=== PATIENT | female | born 1945 | race Caucasian/White ===

== ENCOUNTER 2016-11-07 13:02 | Day surgery (SDC) | payer OTHER ==
[2016-11-03 08:52] LABS: BASOPHILS % (AUTO) 0.4 % (0.0-2.0); EOSINOPHILS # (AUTO) 0.2 K/uL (0.0-0.4); EOSINOPHILS % (AUTO) 2.8 % (0.0-4.0); HEMATOCRIT 43.6 % (36-48); HEMOGLOBIN 14.5 g/dL (12.0-16.0); LYMPHOCYTES # (AUTO) 2.6 K/uL (1.0-5.5); LYMPHOCYTES % (AUTO) 39.1 % (20.5-51.5); MEAN CORPUSCULAR HEMOGLOBIN 31 pg (27-31); MEAN CORPUSCULAR HGB CONC 33 % (32-36); MEAN CORPUSCULAR VOLUME 94 fL (79.0-98.0); MONOCYTES # (AUTO) 0.5 K/uL (0.0-1.0); MONOCYTES % (AUTO) 6.8 % (1.7-9.3); NEUTROPHILS # (AUTO) 3.5 K/uL (1.8-7.7); NEUTROPHILS % (AUTO) 50.9 % (40.0-70.0); PLATELET COUNT (AUTO) 187 K/uL (130-430); RED BLOOD CELL COUNT(AUTO) 4.66 MIL/uL (4.2-6.2); RED CELL DISTRIBUTION WIDTH 13.3 % (9.0-15.0); WHITE BLOOD COUNT (AUTO) 6.8 K/uL (4.8-10.8)
[2016-11-03 08:57] LABS: PROTHROMBIN TIME 10.6 SECS (9.5-12.5)
[2016-11-03 08:59] LABS: ANION GAP 6 (5-15); CALCIUM 9.5 mg/dL (8.4-11.0); CHLORIDE 105 mmol/L (98-107); CREATININE 0.86 mg/dL (0.55-1.30); GLUCOSE 99 mg/dL (70-99); POTASSIUM 4.3 mmol/L (3.5-5.1); SODIUM SERUM 141 mmol/L (136-145); UREA NITROGEN, BLOOD 20 mg/dL (8-21)
[2016-11-03 09:01] LABS: BILIRUBIN,URINE NEGATIVE (NEGATIVE); BLOOD, URINE 1+ (NEGATIVE); CLARITY/URINE CLEAR (CLEAR); COLOR,URINE YELLOW (YELLOW); GLUCOSE,URINE NEGATIVE (NEGATIVE); KETONES,URINE NEGATIVE (NEGATIVE); LEUKOCYTE ESTERASE ,URINE TRACE (NEGATIVE); NITRITE, URINE NEGATIVE (NEGATIVE); PROTEIN URINE NEGATIVE (NEGATIVE); UROBILINOGEN,URINE 0.2 (0.2-1.0)
[2016-11-03 09:18] LABS: BACTERIA,URINE FEW /HPF (None Seen); MUCUS,URINE 1+ /LPF (None Seen)
[~2016-11-07] VITALS: Ht 160 cm; Wt 80.3 kg
[2016-11-07 13:17] VITALS: O2SAT 98
[2016-11-07] MEDS ORDERED: MIDAZOLAM HCL 5 MG/5 ML VIAL ONE (14:00)
[2016-11-07] MEDS ORDERED: SEVOFLURANE 15 MIN GAS INH ONE (14:00)
[2016-11-07] MEDS ORDERED: PROPOFOL 200MG/ 20ML VIAL (DIPRIVAN) IV ONE (14:00)
[2016-11-07] MEDS ORDERED: NS IRRIG SOLN 1000 ML IR ONE (14:00)
[2016-11-07] MEDS ORDERED: LR 1,000 ML IV SCH (14:50)
[2016-11-07] MEDS ORDERED: MORPHINE 2 MG/ML INJ. SYRINGE IVP PRN ×3 (15:00)
[2016-11-07] MEDS ORDERED: METOCLOPRAMIDE HCL 10 MG/2 ML VIAL IVP PRN (15:00)
[2016-11-07 15:52] VITALS: BP 142/58; PULSE 58; RESP 16
== END 2016-11-07 15:50 | disposition home or self-care (01) ==
LOC: SDS 13:02 → SMU 13:03 → SDS 15:50
PROVIDERS: ATTEND Orthopaedic Surgery
DX: M65.332 Trigger finger, left middle finger (principal); F17.200 Nicotine dependence, unspecified, uncomplicated
CPT/HCPCS: 26055; 36415; 71020; 80048; 81000; 85025; 85610; 85730; 93005; J2250; J2704; J7120

== ENCOUNTER 2019-06-09 05:20 | Inpatient (IN) | payer OTHER ==
[2019-06-04 13:36] LABS: BILIRUBIN,URINE NEGATIVE (NEGATIVE); CLARITY/URINE SL HAZY (CLEAR); COLOR,URINE YELLOW (YELLOW); GLUCOSE,URINE NEGATIVE (NEGATIVE); KETONES,URINE TRACE (NEGATIVE); LEUKOCYTE ESTERASE ,URINE 1+ (NEGATIVE); NITRITE, URINE NEGATIVE (NEGATIVE); PROTEIN URINE NEGATIVE (NEGATIVE); UROBILINOGEN,URINE 0.2 (0.2-1.0)
[2019-06-04 13:46] LABS: BLOOD, URINE TRACE (NEGATIVE)
[2019-06-04 13:50] LABS: CALCIUM 9.6 mg/dL (8.4-11.0); CHLORIDE 106 mmol/L (98-107); GLUCOSE 101 mg/dL (70-99); POTASSIUM 3.5 mmol/L (3.5-5.1); SODIUM SERUM 145 mmol/L (136-145); UREA NITROGEN, BLOOD 21 mg/dL (8-21)
[2019-06-04 13:52] LABS: BASOPHILS % (AUTO) 0.6 % (0.0-2.0); EOSINOPHILS # (AUTO) 0.1 K/uL (0.0-0.4); EOSINOPHILS % (AUTO) 1.9 % (0.0-4.0); HEMATOCRIT 44.5 % (36-48); HEMOGLOBIN 15.2 g/dL (12.0-16.0); LYMPHOCYTES # (AUTO) 2.7 K/uL (1.0-5.5); MEAN CORPUSCULAR HEMOGLOBIN 33 pg (27-31); MEAN CORPUSCULAR HGB CONC 34 % (32-36); MEAN CORPUSCULAR VOLUME 96 fL (79.0-98.0); MONOCYTES # (AUTO) 0.5 K/uL (0.0-1.0); MONOCYTES % (AUTO) 6.2 % (1.7-9.3); NEUTROPHILS # (AUTO) 4.1 K/uL (1.8-7.7); NEUTROPHILS % (AUTO) 55.3 % (40.0-70.0); PLATELET COUNT (AUTO) 211 K/uL (130-430); RED BLOOD CELL COUNT(AUTO) 4.65 MIL/uL (4.2-6.2); RED CELL DISTRIBUTION WIDTH 13.3 % (9.0-15.0); WHITE BLOOD COUNT (AUTO) 7.5 K/uL (4.8-10.8)
[2019-06-04 13:54] LABS: BACTERIA,URINE MODERATE /HPF (None Seen); PROTHROMBIN TIME 9.9 SECS (9.5-12.5)
[2019-06-04 13:56] LABS: ANION GAP 9 (5-15)
[~2019-06-09] VITALS: Ht 162.6 cm; Wt 94.8 kg
[2019-06-09] MEDS ORDERED: ACETAMINOPHEN 500 MG TABLET ONE (05:36)
[2019-06-09] MEDS ORDERED: CELECOXIB 200 MG CAPSULE ONE (05:36)
[2019-06-09] MEDS ORDERED: TRANEXAMIC ACID 650 MG TABLET ONE (05:37)
[2019-06-09] MEDS ORDERED: GABAPENTIN 300 MG CAPSULE ONE (05:37)
[2019-06-09] MEDS ORDERED: oxyCODONE HCL 10 MG TAB.ER.12H PO ONE ×2 (05:37→07:30)
[2019-06-09] MEDS ORDERED: CEFAZOLIN 2 GM IVPB PREMIX 50 ML IV ONE ×2 (07:09→08:00)
[2019-06-09] MEDS ORDERED: POLYMYXIN 500,000/BACIT.10,000 UNITS in NS IRR 1 L IR ONE (07:16)
[2019-06-09] MEDS ORDERED: LR 1,000 ML IV.SOLN IV ONE (07:20)
[2019-06-09] MEDS ORDERED: MORPHINE SULFATE 10MG/10ML PF AMP EP ONE (07:20)
[2019-06-09] MEDS ORDERED: VANCOMYCIN HCL 1000 MG/VIAL IV ONE (07:20)
[2019-06-09] MEDS ORDERED: MIDAZOLAM HCL 5 MG/5 ML VIAL IVP ONE (07:20)
[2019-06-09] MEDS ORDERED: BUPIVACAINE /DEX PF 0.75% SPINAL 2 ML AMP INJ ONE (07:20)
[2019-06-09] MEDS ORDERED: TRANEXAMIC ACID 1,000 MG/10 ML VIAL IV ONE ×2 (07:20→08:00)
[2019-06-09] MEDS ORDERED: ROPIVACAINE HCL/PF 0.2% EPIDURAL 200 ML PLAST..BAG EP ONE (07:20)
[2019-06-09] MEDS ORDERED: ROPIVACAINE HCL/PF 5 MG/ML 0.5% 30 ML VIAL INJ ONE (07:20)
[2019-06-09] MEDS: NACL 0.9% 1,000 ML IV SCH ×2 (07:30→15:15)
[2019-06-09] MEDS ORDERED: GABAPENTIN 300 MG CAPSULE PO ONE (07:30)
[2019-06-09] MEDS ORDERED: ACETAMINOPHEN 500 MG TABLET PO ONE (07:30)
[2019-06-09] MEDS ORDERED: CELECOXIB 200 MG CAPSULE PO ONE (07:30)
[2019-06-09] MEDS: ROPIVACAINE HCL/PF 0.2% 100 ML INJ SCH (08:22)
[2019-06-09] MEDS ORDERED: NALOXONE HCL 0.4 MG/ML AMP (NARCAN) IVP PRN ×2 (08:30)
[2019-06-09] MEDS ORDERED: NALBUPHINE HCL 10 MG/ML AMP IVP PRN ×2 (08:30)
[2019-06-09] MEDS ORDERED: MORPHINE SULFATE 10MG/10ML PF AMP SP SCH (08:30)
[2019-06-09] MEDS ORDERED: KETOROLAC TROMETHAMINE 60 MG/2 ML VIAL IM PRN (08:30)
[2019-06-09] MEDS ORDERED: DIPHENHYDRAMINE INJ 50 MG/ML VIAL IVP PRN ×2 (08:30)
[2019-06-09] MEDS ORDERED: ONDANSETRON HCL 4 MG/2 ML VIAL IVP PRN ×2 (08:30)
[2019-06-09] MEDS ORDERED: fentaNYL CITRATE/PF 100 MCG/2 ML AMP IVP PRN ×2 (08:30)
[2019-06-09] MEDS ORDERED: RIVAROXABAN 10 MG TABLET PO ONE (09:00)
[2019-06-09] MEDS ORDERED: D5/0.45 NS 1,000 ML IV ONE (09:11)
[2019-06-09] MEDS ORDERED: MORPHINE SULFATE 10 MG/ML VIAL IM PRN (09:15)
[2019-06-09] MEDS: CEFAZOLIN 1 GM IVPB PREMIX 50 ML IV SCH ×3 (09:15→18:08)
[2019-06-09] MEDS ORDERED: BISACODYL 10 MG/SUPPOSITORY RC PRN (09:15)
[2019-06-09] MEDS ORDERED: HYDROcodone/ACETAMIN 7.5-325 MG TAB PO PRN (09:15)
[2019-06-09 10:40] VITALS: BP_SYST 117
--- NOTE | 2019-06-09 10:40 | NUR ---
OPENING NOTE RECEIVED PATIENT FROM PACU. OR-MAVERICK RN ASSISTED PATIENT TO ROOM AND REPORT RECEIVED. PATIENT RECEIVED A RIGHT TOTAL KNEE REPLACEMENT R/T PAIN. PATIENT WITH ON QPUMP TO RIGHT LEG AND POLAR CARE INTACT AND PATENT. PATIENT DENIES ANY PAIN AT THIS TIME. PATIENT PERFORMED 1000CC ON INCENTIVE SPIROMETER; INFORMED PATIENT IS NEEDS TO BE PERFORMED 10X/HR EVERY HR. IV TO LEFT FOREARM 18G WITH LR INFUSING AND LANCE WELL. LLOYD INTACT AND PATENT DRAINING YELLOW URINE. SCD NOTED TO LEFT LEG. REPOSITIONED FOR COMFORT. ALL NEEDS ANTICIPATED AND MET. CALL LIGHT IN REACH. CONT TO MONITOR
[2019-06-09 11:10] VITALS: BP_SYST 129
--- NOTE | 2019-06-09 13:30 | NUR ---
NOTE PATIENT RESTING IN BED. EASILY AROUSABLE. DENIES ANY PAIN. PATIENT ABLE TO MOVE BILAT LOWER EXTREMITIES. PATIENT ABLE TO MOVE AND FEEL SENSATION TO BILATERAL EXTREMITY. ALL NEEDS MET. CONT TO MONITOR.
--- NOTE | 2019-06-09 15:15 | NUR ---
IVF HUNG NEW IVF ORDERED; LANCE WELL. IV INTACT AND PATENT. NO S/SX REDNESS OR INFILTRATION NOTED. ALL NEEDS MET. DENIES ANY PAIN. CALL LIGHT IN REACH. CONT TO MONITOR.
[2019-06-09 16:28] VITALS: BP_SYST 122
--- NOTE | 2019-06-09 17:00 | NUR ---
NOTE PATIENT AWAKE IN BED ON PHONE. DENIES ANY PAIN. PATIENT ABLE TO MOVE AND FEEL SENSATION TO BILAT LOWER EXT. ALL NEEDS MET. CONT TO MONITOR. CALL LIGHT IN REACH.
[2019-06-09 17:45] VITALS: BP_SYST 122
--- NOTE | 2019-06-09 18:10 | NUR ---
ANCEF IV ATB ADMINISTERED AND ORDERED; LANCE WELL. NO S/SX ASE NOTE AT THIS TIME. VS STABLE. ALL NEEDS MET. CONT TO MONITOR. CALL LIGHT IN REACH
--- NOTE | 2019-06-09 18:15 | NUR ---
P.T. NOTES P.T. EVAL COMPLETED; ENDORSED CPM REMOVAL AT ~2100 TO NURSING; Pt GOOD TOLERANCE 0-50 deg AT THIS TIME, INC 10 deg/day OR LANCE PER MARIJA ANGEL.
--- NOTE | 2019-06-09 19:15 | NUR ---
CLOSING NOTE PATIENT RESTING IN BED WATCHING TV. DENIES ANY PAIN. NO ACUTE DISTRESS. NO SOB. RESP EVEN AND UNLABORED. IV INTACT AND PATENT. LANCE IVF ORDERED. LLOYD CATH INTACT AND PATENT DRAINING YELLOW URINE. PATIENT LANCE CPM MACHINE SET AT 50 DEGREES BY PT. KIMBERLY MONROE IN PLACE AND PATENT. ON QPUMP INTACT AND PATENT @8CC/HR; LANCE WELL. SCD TO LEFT CALF INTACT. BED IN LOW AND LOCKED POSITION. SIDERAIL UP X2. CALL LIGHT IN REACH. ENDORSED TO GIANA CHISHOLM Addendum: 06/09/19 at 1948 by Vicenta Burrell RN PATIENT ABLE TO MOVE AND FEEL SENSATION TO BILATERAL EXTREMITY
--- NOTE | 2019-06-09 19:16 | NUR ---
OPENING NOTE RECEIVED CARE OF PT AND SBAR REPORT. PT IS RESTING IN BED WATCHING TV. PT DENIES ANY PAIN. NO ACUTE DISTRESS. NO SOB. RESP EVEN AND UNLABORED. IV IS INTACT AND PATENT. IVF ARE INFUSING ORDERED. LLOYD CATH INTACT AND PATENT DRAINING TO GRAVITY ANNE MARIE URINE. CPM MACHINE SET AT [address] IS IN PL[address] AND WORKING. POLAR CARE IN PLACE AND PATENT. ON QPUMP INTACT AND PATENT @8CC/HR; LANCE WELL. SCD TO LEFT CALF INTACT. PT ORIENTED TO USE OF CALL LIGHT AND ENCOURAGED TO CALL FOR ANY ASSISTANCE. SAFETY PRECAUTIONS ARE IN PLACE: BED IN LOW AND LOCKED POSITION. SIDERAIL UP X2. CALL LIGHT WITH PT. BED ALARM ON. WILL MONITOR.
--- NOTE | 2019-06-09 19:57 | NUR ---
CONSULTATION PAGED/CALLED Reason for Consultation: HOSPITALIST Person Who was Notified: SHANIA Consulting Physician: MU Reis Specialty: Ordering Physician: JARETT
[2019-06-09 20:00] VITALS: BP_SYST 127
--- NOTE | 2019-06-09 21:10 | NUR ---
RN NOTE: POLAR MACHINE NOTED TO BE LEAKING. PT PROVIDED WITH COMPLETE LINEN AND GOWN CHANGE. PT REPOSITIONED FOR COMFORT, PT TOLERATED WELL. NEW POLAR CARE MACHINE PROVIDED. CPM MACHINE STOPPED AND REMOVED FOR THE NIGHT. NO S/S OF DISTRESS. SAFETY PRECAUTIONS ARE IN PLACE. WILL MONITOR.
[2019-06-10] MEDS: ACETAMINOPHEN 325 MG TABLET PO PRN (00:14)
--- NOTE | 2019-06-10 00:14 | NUR ---
PAIN/TYLENOL PT REQUESTING TYLENOL FOR PAIN TO HER RIGHT KNEE. TYLENOL 650 MG PO ADMINISTERED. MEDICATION AND POTENTIAL SIDE EFFECTS EXPLAINED TO PT, PT VERBALIZED UNDERSTANDING. PT DENIES FURTHER NEEDS. SAFETY PRECAUTIONS ARE IN PLACE. WILL MONITOR.
[2019-06-10] MEDS: NACL 0.9% 1,000 ML IV SCH ×4 (00:15→22:55)
[2019-06-10] MEDS: CEFAZOLIN 1 GM IVPB PREMIX 50 ML IV SCH (02:53)
--- NOTE | 2019-06-10 03:01 | NUR ---
PAIN/NORCO PT REPORTING PAIN TO RIGHT KNEE. PT EDUCATED REGARDING PRN PAIN MEDICATION OPTIONS. PT STATES THAT SHE DOES NOT WANT TO TAKE ANYTHING "TOO STRONG". PT AGREES TO TRY NORCO FOR PAIN CONTROL. NORCO 7.5-325 MG PO ADMINISTERED. MEDICATION ACTION AND POTENTIAL SIDE EFFECTS EXPLAINED. PT VERBALIZED UNDERSTANDING. SAFETY PRECAUTIONS OBSERVED, CALL LIGHT IS WITH PT. WILL MONITOR.
[2019-06-10 05:43] VITALS: BP_SYST 124
--- NOTE | 2019-06-10 06:15 | NUR ---
CLOSING NOTE PT RESTING IN BED, NO S/S OF ACUTE DISTRESS, BREATHING IS UNLABORED TO ROOM AIR. POLAR CARE MACHINE IS ON AND INTACT. PT REPORTS TOLERABLE LEVEL OF PAIN. LLOYD IS INTACT AND DRAINING TO GRAVITY. IVF INFUSING. ALL NEEDS MET DURING SHIFT. SAFETY MAINTAINED. WILL ENDORSE TO DAY SHIFT RN.
--- NOTE | 2019-06-10 07:40 | NUR ---
opening note patient is resting in bed, alert and oriented, assessment completed, educated cooperative education coordinator light system and plan of care, patient verbalized understanding, no other needs addressed at this time, fall/safety precautions in place, IV fluids running.
[2019-06-10 08:00] VITALS: BP_SYST 144
[2019-06-10] MEDS: RIVAROXABAN 10 MG TABLET PO SCH (09:00)
--- NOTE | 2019-06-10 09:00 | NUR ---
ricarda patient is about to start physical therapy, educated on medication use and side effects, patient verbalized understanding, no other needs addressed at this time, fall/safety precautions in place, IV fluids running.
[2019-06-10] MEDS: ROPIVACAINE HCL/PF 0.2% 100 ML INJ SCH ×2 (09:22→21:52)
--- NOTE | 2019-06-10 09:45 | NUR ---
Nutrition Update Mundo Scale 16 noted. Pt admitted for unilateral primary osteoarthritis, R knee. Diet: regular BMI: 35.9 kg/m2 RD to follow per nutrition care standards.
[2019-06-10] MEDS: OXYCODONE/ACETAMINOPHEN *10*mg/325 mg TABLET PO PRN ×3 (10:18→19:55)
--- NOTE | 2019-06-10 11:43 | NUR ---
rounds patient is resting in bed, patient states pain is more tolerable now and she will let me know if she needs more pain medications, no other needs at this time, fall/safety precautions in place, IV fluids running, PT put her back on the CPM machine.
[2019-06-10 12:25] VITALS: BP_SYST 130
--- NOTE | 2019-06-10 13:20 | NUR ---
rounds patient is resting in bed, no other needs at this time, fall/safety precautions in place, IV fluids running, on CPM machine and polar machine, fall/safety precautions in place.
--- NOTE | 2019-06-10 15:01 | NUR ---
pain medication patient complaining of right knee pain, educated on medication use and side effects, patient verbalized understanding, patient requested to have CPM machine off, no other needs at this time, fall/safety precautions in place.
[2019-06-10 16:23] VITALS: BP_SYST 137
--- NOTE | 2019-06-10 17:25 | NUR ---
rounds patient is resting in bed, no other needs at this time, fall/safety precautions in place, IV fluids running, no needs addressed at this time, fall/safety precautions in place.
--- NOTE | 2019-06-10 18:46 | NUR ---
closing note patient is resting in bed, no signs of distress, no needs addressed at this time, fall/safety precautions in place, IV fluids running, will endorse report to noc shift nurse to continue with care, patient prefers the PO pain medications over the IM morphine, patient has been tolerated good with the percocet, DC hand order is for tomorrow.
--- NOTE | 2019-06-10 19:20 | NUR ---
OPENING NOTE RECEIVED CARE OF PT AND SBAR REPORT. PT IS RESTING IN BED WATCHING TV WITH FAMILY AT BEDSIDE. PT REPORTS INCREASING PAIN TO THE RIGHT KNEE WITH MOVEMENT. NO ACUTE DISTRESS. NO SOB. RESP EVEN AND UNLABORED. IV IS INTACT AND PATENT. IVF ARE INFUSING ORDERED. LLOYD CATH INTACT AND PATENT DRAINING TO GRAVITY ANNE MARIE URINE. POLAR CARE IN PLACE AND PATENT. ON QPUMP INTACT AND PATENT @8CC/HR; LANCE WELL. SCD TO LEFT CALF INTACT. PT ORIENTED TO USE OF CALL LIGHT AND ENCOURAGED TO CALL FOR ANY ASSISTANCE. SAFETY PRECAUTIONS ARE IN PLACE: BED IN LOW AND LOCKED POSITION. SIDERAIL UP X2. CALL LIGHT WITH PT. BED ALARM ON. WILL MONITOR.
--- NOTE | 2019-06-10 19:55 | NUR ---
PAIN/PERCOCET PT REPORTING PAIN TO RIGHT KNEE. PERCOCET 10-325 MG PO ADMINISTERED. MEDICATION AND POTENTIAL SIDE EFFECTS EXPLAINED TO PT, PT VERBALIZED UNDERSTANDING. SAFETY AND FALL PRECAUTIONS OBSERVED. WILL MONITOR.
[2019-06-10 20:00] VITALS: BP_SYST 135
--- NOTE | 2019-06-10 22:25 | NUR ---
RN NOTE PT IS SLEEPING IN BED, SOFT SNORE CAN BE HEARD. VISIBLE RISE AND FALL OF CHEST. PT APPEARS COMFORTABLE AND IN NO ACUTE DISTRESS. LLOYD CATHETER IS INTACT AND DRAINING WELL TO GRAVITY. IVF INFUSING. SAFETY MAINTAINED. WILL MONITOR.
[2019-06-11] MEDS: OXYCODONE/ACETAMINOPHEN *10*mg/325 mg TABLET PO PRN ×3 (00:04→18:36)
--- NOTE | 2019-06-11 00:04 | NUR ---
PAIN/PERCOCET PT REPORTING SEVERE PAIN TO RIGHT KNEE. PERCOCET 10-325 MG PO ADMINISTERED. PT BREATHING IS UNLABORED TO ROOM AIR. NO S/S OF ACUTE DISTRESS. SAFETY PRECAUTIONS REMAIN IN PLACE. WILL MONITOR.
[2019-06-11 01:38] VITALS: BP_SYST 140
--- NOTE | 2019-06-11 02:05 | NUR ---
RESTING PT RESTING IN BED WITH EYES CLOSED. INTERMITTENT MOVEMENT NOTED. EVEN AND UNLABORED BREATHING WITH SLIGHT SNORE. NO SIGN OF PAIN AT THIS TIME. SAFETY MAINTAINED. WILL MONITOR.
--- NOTE | 2019-06-11 05:20 | NUR ---
PAIN/PERCOCET PT REPORTING SEVERE PAIN TO RIGHT KNEE. PERCOCET 10-325 MG PO ADMINISTERED. PT BREATHING IS UNLABORED TO ROOM AIR. NO S/S OF ACUTE DISTRESS. PT DENIES FURTHER NEEDS AT THIS TIME. IVF INFUSING ORDERED. LLOYD DRAINING TO GRAVITY. POLAR CARE IS IN PLACE. SAFETY PRECAUTIONS REMAIN IN PLACE. WILL MONITOR.
[2019-06-11] MEDS: NACL 0.9% 1,000 ML IV SCH ×3 (05:21→23:08)
--- NOTE | 2019-06-11 06:51 | NUR ---
LLOYD CATHETER D/C'D PT EDUCATED REGARDING NEED TO TAKE OUT LLOYD IT IS THE SECOND DAY POST OP. LLOYD CATHETER TAKEN OUT. PT TOLERATED WELL. PT EDUCATED REGARDING NEED TO INFORM NURSE FOR FIRST URINATION. PT VERBALIZED UNDERSTANDING. WILL MONITOR.
--- NOTE | 2019-06-11 06:55 | NUR ---
CLOSING NOTE PT RESTING IN BED. NO S/S OF ACUTE DISTRESS. PAIN MANAGED THROUGHOUT SHIFT. IVF INFUSING. SAFETY MAINTAINED. ALL NEEDS MET DURING SHIFT. WILL ENDORSE TO DAY SHIFT.
--- NOTE | 2019-06-11 07:35 | NUR ---
opening note patient is resting in bed, alert and oriented, assessment completed, educated transportation aide light system and plan of care, patient verbalized understanding, no other needs addressed at this time, fall/safety precautions in place, IV fluids running, patient's hand was DC, patient reported to me what her home BP medication is.
[2019-06-11 08:10] VITALS: BP_SYST 158
[2019-06-11] MEDS ORDERED: HYDR25TA4 PO (08:20)
[2019-06-11] MEDS: RIVAROXABAN 10 MG TABLET PO SCH (08:41)
[2019-06-11] MEDS ORDERED: RIVA10TA PO (08:52)
--- NOTE | 2019-06-11 08:52 | NUR ---
Discharge planning spoke with Dynamic Balancer Set Up Worker Vida, informed her of orders for discharge home with home health for physical therapy, CM to arrange for home health.
[2019-06-11] MEDS ORDERED: TRAM100T34 PO (08:55)
--- NOTE | 2019-06-11 10:14 | NUR ---
rounds assisted patient back to bed from the commode, patient voided, no other needs at this time, polar machine put back on, fall/safety precautions in place.
--- NOTE | 2019-06-11 10:18 | NUR ---
Discharge Planning: ANNIA faxed pt referral to [facility] (f [phone] p [phone]) DCP to follow up Addendum: 06/11/19 at 1342 by Julia Reza DP [facility] (f [phone] p [phone]) accepted pt. DCP made [facility] aware.
[2019-06-11] MEDS: ROPIVACAINE HCL/PF 0.2% 100 ML INJ SCH ×2 (10:22→22:52)
--- NOTE | 2019-06-11 10:48 | NUR ---
patient refused PT PT and I educated patient on the importance of her having her therapy, patient stated that she is too tired for PT and does not want to walk right now, I informed her that she will be doing this at home so it is importance for her to start now, she stated that she understands and will cooperate with PT at home but does not want to do it here.
[2019-06-11 10:57] VITALS: BP_SYST 157
[2019-06-11 11:47] VITALS: BP_SYST 157
--- NOTE | 2019-06-11 12:21 | NUR ---
rounds patient is resting in bed, no signs of distress, no needs addressed at this time, patient was assisted to the bedside commode and back to bed, I spoke to Julia the DCP about the DC planning, informed me that she is still waiting to hear back about her benefits.
--- NOTE | 2019-06-11 12:56 | NUR ---
patient got on commode bed alarm went off and patient was found getting on the commode on her own, assisted patient, I educated patient of the importance of calling for help to get on the commode to ensure her safety, patient verbalized understanding, bed alarm on, call light within reach, two side rails up.
--- NOTE | 2019-06-11 13:43 | NUR ---
Discharge planning spoke with asset management coordinator rachel Dumont [facility] is arranged for patient for discharge home.
[2019-06-11] MEDS: ACETAMINOPHEN 325 MG TABLET PO PRN (14:17)
--- NOTE | 2019-06-11 14:50 | NUR ---
rechecked temperature after 30min of giving tylenol, temp was 101.1 oral, will continue to monitor. Son is at the bedside and I informed him that we want to monitor her fever before going home, he verbalized understanding.
[2019-06-11 15:17] VITALS: BP_SYST 120
--- NOTE | 2019-06-11 15:35 | NUR ---
talk to Dr Min in regards to the patient's temp of 101.0 one hour after giving her Tylenol, said to hold patient's discharge until tomorrow, patient was informed about this.
--- NOTE | 2019-06-11 17:26 | NUR ---
rechecked temp oral temp was 99.0, patient is resting in bed, IV fluids running, no needs addressed at this time, fall/safety precautions in place.
--- NOTE | 2019-06-11 18:44 | NUR ---
closing note patient is resting in bed, no signs of distress, no needs addressed at this time, pain medication was given earlier, fall/safety precautions in place, IV fluids running, will endorse report to noc shift nurse to continue with care, patient prefers the PO pain medications over the IM morphine, patient has been tolerated good with the percocet, monitor temperature and patient's discharge was held for tomorrow until cleared by Dr Min.
--- NOTE | 2019-06-11 19:50 | NUR ---
PM SHIFT ASSESSMENT Received patient lying in bed, aox4, assisted to bedside commode, right knee pain level tolerable at this time, pain medication administered earlier, right knee pain with dressing intact and patent, no signs of bleeding noted, on Q pump infusing at 8 ml/hr, patient refusing to have cpm and polar care placed to right knee, updated on plan of care for tonight, verbalized understanding. Educated on use of incentive spirometer, patient needs reinforcement, oriented to use call light for nurse assistance, fall and safety precautions in place, will monitor.
[2019-06-11 20:00] VITALS: BP_SYST 128
--- NOTE | 2019-06-11 21:06 | NUR ---
RN ROUNDS Patient sleeping at this time, respirations even and unlabored, on room air, right heel elevated with pillow support, safety and fall precautions in place, call light within reach, will monitor.
--- NOTE | 2019-06-11 22:10 | NUR ---
RN ROUNDS Patient continues to sleep, respirations even and unlabored, remains on room air, right heel elevated with pillow support, safety and fall precautions in place, call light within reach, will monitor.
--- NOTE | 2019-06-12 00:50 | NUR ---
ENDORSEMENT RECEIVED PATIENT ENDORSEMENT FROM CHARGE NURSE
[2019-06-12 00:51] VITALS: BP_SYST 136
[2019-06-12] MEDS: OXYCODONE/ACETAMINOPHEN *10*mg/325 mg TABLET PO PRN (01:37)
--- NOTE | 2019-06-12 01:37 | NUR ---
PAIN MGT PATIENT MEDICATED WITH PERCOCET FOR C/O OF RT KNEE PAIN. VITAL SIGNS STABLE. CALL LIGHT WITH IN REACH. FALL PRECAUTIONS OBSERVED.
--- NOTE | 2019-06-12 04:30 | NUR ---
DR DAISY VILLA MAKING ROUNDS. NO NEW ORDERS.
--- NOTE | 2019-06-12 05:30 | NUR ---
OOB ASSISTED PATIENT OUT OF BED TO BEDSIDE COMMODE AND BACK TO BED.
--- NOTE | 2019-06-12 06:47 | NUR ---
CLOSING NOTES PATIENT RESTING IN BED. BREATHING UNLABORED ON ROOM AIR. RT KNEE DRESSING DRY AND INTACT. RT HEEL UNDER A PILLOW. Q PUMP INTACT ON RT THIGH. IVF INFUSING WITH IV LINE INTACT. PATIENT NEEDS ATTENDED. BED IN LOWEST LOCKED POSITION. BED ALARM ON. CALL LIGHT WITH IN REACH.
--- NOTE | 2019-06-12 07:47 | NUR ---
AM NOTES - In bed, awake ,alert and oriented. Eating breakfast .Right knee dressing is dry and intact.s still has q pump at 8ml/hr. Pain is controlled at his time. IVF infusing well. Uses bedside commode.afebrile. Safety precaution observed.Call light within reach. Enc. to call for help as needed.
[2019-06-12 08:00] VITALS: BP_SYST 158
[2019-06-12] MEDS: NACL 0.9% 1,000 ML IV SCH (09:00)
--- NOTE | 2019-06-12 09:00 | NUR ---
ROUNDS Seen by Dr. Min at bedside and removed dressing. MD cleared pat to go home and recommend to leave incision open to air.
[2019-06-12] MEDS: RIVAROXABAN 10 MG TABLET PO SCH (09:03)
[2019-06-12 10:51] LABS: BASOPHILS % (AUTO) 0.3 % (0.0-2.0); EOSINOPHILS # (AUTO) 0.1 K/uL (0.0-0.4); EOSINOPHILS % (AUTO) 0.7 % (0.0-4.0); HEMATOCRIT 31.4 % (36-48); HEMOGLOBIN 10.8 g/dL (12.0-16.0); LYMPHOCYTES # (AUTO) 1.4 K/uL (1.0-5.5); LYMPHOCYTES % (AUTO) 19.6 % (20.5-51.5); MEAN CORPUSCULAR HEMOGLOBIN 33 pg (27-31); MEAN CORPUSCULAR HGB CONC 34 % (32-36); MEAN CORPUSCULAR VOLUME 96 fL (79.0-98.0); MONOCYTES # (AUTO) 0.8 K/uL (0.0-1.0); MONOCYTES % (AUTO) 10.7 % (1.7-9.3); NEUTROPHILS % (AUTO) 68.7 % (40.0-70.0); PLATELET COUNT (AUTO) 163 K/uL (130-430); RED BLOOD CELL COUNT(AUTO) 3.28 MIL/uL (4.2-6.2); RED CELL DISTRIBUTION WIDTH 12.9 % (9.0-15.0); WHITE BLOOD COUNT (AUTO) 7.3 K/uL (4.8-10.8)
[2019-06-12 10:58] LABS: ANION GAP 2 (5-15); CHLORIDE 108 mmol/L (98-107); CREATININE 0.73 mg/dL (0.55-1.30); GLUCOSE 113 mg/dL (70-99); POTASSIUM 3.1 mmol/L (3.5-5.1); SODIUM SERUM 139 mmol/L (136-145); UREA NITROGEN, BLOOD 8 mg/dL (8-21)
[2019-06-12] MEDS ORDERED: LEVOFLOXACIN 500 MG/D5W 100 ML IV SCH (11:00)
[2019-06-12 11:03] LABS: ALANINE AMINOTRANSFERASE 15 U/L (12-78); ALBUMIN 1.9 g/dL (3.4-4.8); ASPARTATE AMINOTRANSFERASE 14 U/L (10-37); TOTAL BILIRUBIN 0.5 mg/dL (0.0-1.0)
--- NOTE | 2019-06-12 11:30 | NUR ---
NOTES-PG DR. DOBBINS IN REGARDS TO LAB RESULTS. K 3.1.
--- NOTE | 2019-06-12 11:53 | NUR ---
Notes- Spoke to DR. Bull and made aware of labs and chest Xray results. New orders received.
[2019-06-12] MEDS ORDERED: POTASSIUM CHLORIDE 20 MEQ TAB.PRT.SR PO ONE (12:00)
[2019-06-12] MEDS ORDERED: FUROSEMIDE 20 MG/2 ML VIAL IVP ONE (12:00)
--- NOTE | 2019-06-12 12:30 | NUR ---
Q PUMP REMOVED ORDERED.
--- NOTE | 2019-06-12 12:42 | NUR ---
Notes- Resting in bed, IV antibiotics and lasix given. Denies any shortness of breath. Enc. to use incentive spirometer. Pt verbalize understanding.
[2019-06-12 12:48] VITALS: BP_SYST 140
[2019-06-12 13:27] VITALS: BP_SYST 140
--- NOTE | 2019-06-12 13:30 | NUR ---
MD ROUNDS SEEN BY DR. DOBBINS AND OKAYED TO DISCHARGE PATIENT.
--- NOTE | 2019-06-12 14:16 | NUR ---
DC planning: LEAD WELDER contacted [facility] to notify agency that Pt. has been DC today from [facility] for further follow up, confirmed RN will be out tomorrow to meet with Pt.
--- NOTE | 2019-06-12 14:20 | NUR ---
DISCHARGE- D/C PT HOME WITH HOME HEALTH ACCOMPANIED BY FAMILY. PAIN IS CONTROLLED AT THIS TIME. DENIES ANY CHEST PAIN OR SHORTNESS OF BREATH. V/S STABLE. RIGHT KNEE INCISION IS DRY AND NO DRAINAGE NOTED. DISCHARGE INSTRUCTION, PRESCRIPTION AND HOME HEALTH DISCUSSED WITH PATIENT. PT VERBALIZE UNDERSTANDING. ARM BAND AND IVL REMOVED. DISCHARGE.
== END 2019-06-12 14:15 | disposition home health service (06) | DRG 470 ==
LOC: SMU 05:20
PROVIDERS: ADMIT Orthopaedic Surgery; ATTEND Orthopaedic Surgery
PROC: 0SRC0J9 Replacement of Right Knee Joint with Synthetic Substitute, Cemented, Open Approach (ICD-10-PCS; principal; 2019-06-09 07:30)
DX: M17.11 Unilateral primary osteoarthritis, right knee (principal); F17.210 Nicotine dependence, cigarettes, uncomplicated; G89.29 Other chronic pain; I10 Essential (primary) hypertension; Z79.01 Long term (current) use of anticoagulants
CPT/HCPCS: 36415; 71045; 71046-TC; 80048; 80053; 81000-TC; 85025; 85610-TC; 85730-TC; 87081; 88305; 88311; 97039; 97110-GP; 97112-GP; 97116-GP; 97163; 97530-GP; C1713; C1776; J0690; J1940; J1956; J2250; J2270; J2274; J2405; J2795; J3370; J3490; J7030; J7120